=== PATIENT | female | born 2000 | race Caucasian/White ===

== ENCOUNTER 2024-02-28 09:06 | Emergency (ER) | payer OTHER ==
[~2024-02-28] VITALS: Ht 162.6 cm; Wt 88.0 kg
[2024-02-28] MEDS ORDERED: LORAZEPAM 1 MG TABLET ONE (09:22)
[2024-02-28] MEDS: LORAZEPAM 1 MG TABLET PO ONE (09:23)
[2024-02-28 09:58] LABS: PREGNANCY TEST URINE QUAL NEGATIVE (NEGATIVE)
[2024-02-28 10:45] VITALS: BP 110/70; TEMP 98.2; O2SAT 100
== END 2024-02-28 10:45 | disposition home or self-care (01) ==
LOC: ER 09:17
DX: F41.1 Generalized anxiety disorder (principal); F45.8 Other somatoform disorders
CPT/HCPCS: 71045-TC; 84703-TC

== ENCOUNTER 2024-08-19 14:51 | Emergency (ER) | payer OTHER ==
[~2024-08-19] VITALS: Ht 167.6 cm; Wt 78.9 kg
[2024-08-19] MEDS ORDERED: PRED20TA PO (15:27)
[2024-08-19] MEDS ORDERED: DIPH25CA83 PO (15:27)
[2024-08-19] MEDS ORDERED: FAMO40TA7 PO (15:27)
[2024-08-19] MEDS ORDERED: dexaMETHasone SOD PHOSPHATE 4 MG/ML VIAL ONE (15:29)
[2024-08-19] MEDS: dexaMETHasone SOD PHOSPHATE 4 MG/ML VIAL IM ONE (15:31)
[2024-08-19 15:55] VITALS: BP 119/76; TEMP 97.3; O2SAT 100
== END 2024-08-19 15:55 | disposition home or self-care (01) ==
LOC: ER 15:00
DX: L50.9 Urticaria, unspecified (principal)
CPT/HCPCS: 99283; 96372; J1100